=== PATIENT | female | born 1970 | race Caucasian/White ===

== ENCOUNTER 2018-09-27 22:45 | Inpatient (IN) | payer OTHER ==
[2018-09-27] MEDS ORDERED: KETOROLAC TROMETHAMINE 30 MG/1 ML VIAL IVPUSH ONE (23:01)
--- NOTE | 2018-09-27 23:03 | PDOC ---
History of Present Illness - General Chief Complaint: Pain, Acute Stated Complaint: PAIN IN LEFT RIB CAGE/NECK AND SHOULDER X 4 DAYS Time Seen by Provider: 09/27/18 22:46 History Source: Patient Exam Limitations: No Limitations - History of Present Illness Initial Comments: 09/28/18 00:18 This is a 47-year-old female who comes in complaining of left sided rib/ pleuritic type pain. Patient has not been taking anything for the pain and comes in tearful and upset complaining that it's difficult to breathe secondary to the pain. Patient denies any trauma to the area. Patient denies any history of DVT or PE in the past. Patient denies any family history of blood clots in the past. Patient is otherwise healthy and takes no medication. Patient said symptoms been going on for approximately 4-5 days. Allergies: as per nursing notes Past Medical History: none Social history: Lives with family. No smoking. No alcohol. No illicit drugs. Surgical history: None General: No fevers or chills, no weakness, no weight loss HEENT: No change in vision. No sore throat,. No ear pain CardioVascular: no chest discomfort. No shortness of breath Respiratory:No cough, or wheezing. Pleuritic chest pain with dyspnea Gastrointestinal: no nausea, vomiting, diarrhea or constipation, No rectal bleeding Genitourinary: No dysuria, hematuria, or frequency Musculoskeletal: No joint or muscle pain or swelling Neurologic: No headache, vertigo, dizziness or loss of consciousness Psychiatric: nor depression Skin: No rashes or easy bruising Endocrine: no increased thirst or abnormal weight change Allergic: no skin or latex allergy All other systems reviewed and normal Exam: General: Well-nourished well-developed individual, no acute distress HEENT: Throat: Normal, tonsils normal, no erythema or exudate Neck: Supple, no meningeal signs, no lymphadenopathy Eyes::Pupils equal reactive and round, extraocular motion intact Chest: Nontender to palpation Cardiac: S1-S2 normal, regular rate and rhythm, no murmurs rubs or gallops Respiratory: Lungs clear to auscultation bilateral Abdomen: Soft, nondistended, normal bowel sounds, there is no tenderness on palpation diffusely Extremities: Warm, dry, no cyanosis, clubbing, or edema Skin: No rashes Neuro: Alert and oriented x3, CN II - XII intact, nonfocal exam with normal strength, normal sensation, normal reflexes, normal gait, Psych: Normal mood and affect EKG shows normal sinus rhythm at a rate of [address]-T wave changes normal EKG Chest x-ray shows no acute pathology CT angiogram of the chest was positive for multiple pulmonary embolisms. Patient will be admitted to a inpatient bed and started on heparin 09/28/18 01:08 06:50am Patient complains of severe pain so was given 4 mg of morphine. Post the morphine patient suddenly became bradycardic and the diaphoretic. Patient's heart rate bradycardia down to approximately 23. Patient became unresponsive and her respiratory rate dropped to 8. Patient was put on high flow oxygen and given 1 dose of atropine with rapid return to a normal heart rate and normal level of consciousness. It is uncertain as to the etiology however I think this most likely is secondary to a vasovagal reaction to her pain. Care of this patient was transferred to Dr. sprague at 7 AM. Case discussed in detail with oncoming Emergency Physician including history, physical exam and ancillary studies. Oncoming Emergency Physician has assumed care for the patient and will complete the evaluation and treatment. Patient is aware of the plan. Pt is clinically unchanged and stable. 09/28/18 21:06 Past History - Past Medical History Allergies/Adverse Reactions: Allergies Allergy/AdvReac Type Severity Reaction Status Date / Time No Known Allergies Allergy Verified 09/27/18 22:47 Home Medications: Ambulatory Orders Control 1 tab PO DAILY 09/28/18 ED Treatment Course - LABORATORY CBC & Chemistry Diagram: 09/27/18 23:10 09/28/18 06:15 *DC/Admit/Observation/Transfer Diagnosis at time of Disposition: Pulmonary embolism Qualifiers: Pulmonary embolism type: unspecified Chronicity: acute Acute cor pulmonale presence: without acute cor pulmonale Qualified Code(s): I26.99 - Other pulmonary embolism without acute cor pulmonale - Discharge Dispostion Condition at time of disposition: Guarded Decision to Admit order: Yes - Referrals - Patient Instructions - Post Discharge Activity
[2018-09-27] MEDS ORDERED: KETOROLAC TROMETHAMINE 30 MG/1 ML VIAL ONE (23:06)
[2018-09-27 23:23] LABS: BASO % 0.9 % (0-2.0); EOS % 0.9 % (0-4.5); HEMATOCRIT 41.2 % (32.4-45.2); HEMOGLOBIN 13.7 GM/dl (10.7-15.3); LYMPH % 31.5 % (8-40); MCHC 33.1 g/dl (32.0-36.0); MEAN CELL VOLUME 90.4 fl (80-96); MEAN PLT VOLUME 8.2 fl (7.5-11.1); MONO % 7.2 % (3.8-10.2); NEUT % 59.5 % (42.8-82.8); PLATELET COUNT 298 K/MM3 (134-434); RBC 4.56 M/mm3 (3.60-5.2); RDW 12.8 % (11.6-15.6); WHITE BLOOD COUNT 6.9 K/mm3 (4.0-10.8)
[2018-09-27 23:35] LABS: ALBUMIN 3.2 g/dl (3.4-5.0); BILIRUBIN,TOTAL 0.7 mg/dl (0.2-1); CALCIUM 8.8 mg/dl (8.5-10); CREATININE 0.6 mg/dl (0.55-1.3); POTASSIUM 4.2 mmol/L (3.5-5.1); TOT PROT 6.7 g/dl (6.4-8.2)
[2018-09-28] MEDS ORDERED: HEPARIN NA (PORCINE) 5,000 UNITS/ML 1ML VIAL IVPUSH PRN ×2 (01:03)
[2018-09-28] MEDS ORDERED: HEPARIN INFUSION - 25,000 UNITS/500 ML INFUS.BAG IVPB ONE (01:04)
[2018-09-28] MEDS ORDERED: HEPARIN NA (PORCINE) 5,000 UNITS/ML 1ML VIAL IVPUSH ONE (01:04)
[2018-09-28] MEDS ORDERED: HEPARIN NA (PORCINE) 5,000 UNITS/ML 1ML VIAL ONE (01:04)
[2018-09-28] MEDS ORDERED: HEPARIN SOD,PORK IN 0.45% NACL 25,000 UNIT/500 ML INFUS.BAG IVPB SCH (01:15)
[2018-09-28 02:06] LABS: INR 1.03 (0.83-1.09); PROTHROMBIN TIME (PATIENT) 12.1 SEC (9.7-13.0)
[2018-09-28 02:08] LABS: ACTIVATED PTT 29.8 SECONDS (25.2-36.5)
[2018-09-28] MEDS ORDERED: morphine CARPU-JECT 4 MG/1 ML DISP.SYRIN IVPUSH ONE (06:45)
[2018-09-28] MEDS ORDERED: morphine SULFATE 4 MG/ML VIAL ONE (06:46)
[2018-09-28] MEDS ORDERED: ATROPINE SULFATE 1 MG/10 ML DISP.SYRIN ONE (06:57)
--- NOTE | 2018-09-28 07:30 | PDOC ---
*Physical Exam - Vital Signs Last Vital Signs Temp Pulse Resp BP Pulse Ox 98.5 F 82 20 116/78 100 09/27/18 22:51 09/28/18 07:07 09/28/18 07:07 09/28/18 07:07 09/28/18 07:07 ED Treatment Course - LABORATORY CBC & Chemistry Diagram: 09/27/18 23:10 09/27/18 23:10 - ADDITIONAL ORDERS Additional order review: Laboratory Results 09/28/18 09/28/18 09/27/18 01:40 01:40 23:10 PT with INR 12.10 INR 1.03 PTT (Actin FS) 29.8 Sodium Potassium Chloride Carbon Dioxide Anion Gap BUN Creatinine Est GFR (CKD-EPI)AfAm Est GFR (CKD-EPI)NonAf Random Glucose Lactic Acid 0.9 Calcium Total Bilirubin AST ALT Alkaline Phosphatase Creatine Kinase Troponin I Total Protein Albumin Beta HCG, Quant Stool Occult Blood Negative 09/27/18 09/27/18 09/27/18 23:10 23:10 23:10 PT with INR INR PTT (Actin FS) Sodium 136 Potassium 4.2 Chloride 101 Carbon Dioxide 28 Anion Gap 7 L BUN 12.0 Creatinine 0.6 Est GFR (CKD-EPI)AfAm 127.58 Est GFR (CKD-EPI)NonAf 110.08 Random Glucose 80 Lactic Acid Calcium 8.8 Total Bilirubin 0.7 AST 23 ALT 12 L Alkaline Phosphatase 76 Creatine Kinase 52 Troponin I < 0.03 Total Protein 6.7 Albumin 3.2 L Beta HCG, Quant Cancelled Stool Occult Blood 09/27/18 23:10 RBC 4.56 MCV 90.4 MCHC 33.1 RDW 12.8 MPV 8.2 Neutrophils % 59.5 Lymphocytes % 31.5 Monocytes % 7.2 Eosinophils % 0.9 Basophils % 0.9 - Medications Given in the ED: ED Medications Discontinued Medications Generic Name Dose Route Start Last Admin Trade Name Freq PRN Reason Stop Dose Admin Heparin Sodium (Porcine) 4,400 unit 09/28/18 01:04 09/28/18 02:16 Heparin - 80 unit/kg (4400 unit) 09/28/18 01:05 4,400 unit IVPUSH Administration ONCE ONE Ketorolac Tromethamine 30 mg 09/27/18 23:01 09/27/18 23:15 Toradol Injection - IVPUSH 09/27/18 23:02 30 mg ONCE ONE Administration Morphine Sulfate 4 mg 09/28/18 06:45 09/28/18 07:00 Morphine Injection - IVPUSH 09/28/18 06:46 4 mg ONCE ONE Administration Medical Decision Making - Medical Decision Making 09/28/18 07:[address] pt signed out from Dr Lee at 7pm, pending admit pt already admitted to hospitalist service overnight. in summary 47 YOF with no known medical history, +OCP use, presenting with pleuritic chest pain x 4 days. had received toradol initially for pain control CTA revealed multiple PEs. on heparin gtt. biomarkers wnl, no e/o strain pt given morphine 2mg IV for pain control, at 655AM - pt had episode of near syncope, where she became severely bradycardic 20s, bradypneic. s/p atropine 1mg x1 O2 supplementation, titrated to nasal cannula improved with therapy. VS normalized, HD appropriate, on tele monitor previously overnight also had attempts to get bed at [facility], where her father is a physician, and due to preference made attempt to transfer and get bed at [facility] called again at 715AM - no acceptance yet, pending bed, but no call back. information/facesheet was sent over in the meantime from overnight 725AM - called to ICU at [facility], spoke with resident Dr Dumont, attg on Dr Weiner, discussed case for acceptance, will arrange for bed in the meantime , as pt unable to stay at [facility]. also d/w hospitalist team, AKILA Gamble. 09/28/18 07:29 *DC/Admit/Observation/Transfer Diagnosis at time of Disposition: Pulmonary embolism Qualifiers: Pulmonary embolism type: unspecified Chronicity: acute Acute cor pulmonale presence: without acute cor pulmonale Qualified Code(s): I26.99 - Other pulmonary embolism without acute cor pulmonale - Discharge Dispostion Condition at time of disposition: Guarded Decision to Admit order: Yes Decision to Admit order Date/Time: 09/28/18 07:29 - Referrals - Patient Instructions - Post Discharge Activity
[2018-09-28 07:38] LABS: BLOOD UREA NITROGEN 15.9 mg/dL (7-18); CALCIUM 8.8 mg/dL (8.5-10.1); CREATININE 0.6 mg/dL (0.55-1.3); POTASSIUM 4.3 mmol/L (3.5-5.1)
[2018-09-28] MEDS ORDERED: ATROPINE SULFATE 1 MG/10 ML DISP.SYRIN IVPUSH ONE (07:44)
[2018-09-28] MEDS ORDERED: SODIUM CHLORIDE 0.9% 500 ML INFUS.BAG IV ONE (08:12)
--- NOTE | 2018-09-28 08:31 | HP ---
Admitting History and Physical - Admission Chief Complaint: received signout on this patient 09/28/08 @ 830am[facility]08 to syncopal episodes in the ED at [facility]. She was found to have segmental PEs on imaging done at [facility] and is on heparin drip. full h&p to follow once patient is seen by me. History of Present Illness: Patient is a 47-year-old female who comes in complaining of left sided rib/ pleuritic type pain that began one week before her vacation to [place]. She went to [place] last week and returned on Tuesday. Before her trip she had some coughing and mild chest discomfort, but mild and tolerable. Her chest pain discomfort was mostly on her left side of her chest which worsened when she was in [place]. She reports that she is on a control pill called Kariva and has been taking in for a few months. She reports that she does not smoke. Patient denies any history of DVT or PE in the past. Patient denies any family history of blood clots in the past. Patient is otherwise healthy. Per ED signout , patient had an episode of near syncope in the ED at 0655, where she became severely bradycardic 20s, bradypneic and was given atropine 1mg once. She was placed on nasal cannula and she improved. CTA done in the ED shows bilateral PEs and a heparin drip was initiated. She was initially at [place] ED and was transferred to [facility] for ICU monitoring. Patient has a family member at [place] and she will be transferred to MICU today. History Source: Patient, Medical Record Limitations to Obtaining History: No Limitations - Past Medical History ...: No (on control) - Past Surgical History Past Surgical History: Yes: None - Smoking History Smoking history: Never smoked Have you smoked in the past 12 months: No - Alcohol/Substance Use Hx Alcohol Use: No History of Substance Use: reports: None - Social History Usual Living Arrangement: Yes: With Spouse ADL: Independent History of Recent Travel: Yes (Traveled to [place]) Home Medications - Allergies Allergies/Adverse Reactions: Allergies Allergy/AdvReac Type Severity Reaction Status Date / Time No Known Allergies Allergy Verified 09/27/18 22:47 - Home Medications Home Medications: Ambulatory Orders Control 1 tab PO DAILY 09/28/18 Review of Systems - Review of Systems Constitutional: reports: Lethargy Eyes: reports: No Symptoms HENT: reports: No Symptoms Neck: reports: No Symptoms Cardiovascular: reports: Chest Pain Respiratory: reports: Cough, Exercise Intolerance, SOB, SOB on Exertion Gastrointestinal: reports: No Symptoms Physical Examination Vital Signs: Vital Signs Temperature 98.5 F 09/27/18 22:51 Pulse Rate 52 L 09/28/18 08:15 Respiratory Rate 18 09/28/18 08:15 Blood Pressure 46/30 L 09/28/18 08:15 O2 Sat by Pulse Oximetry (%) 2 L 09/28/18 08:15 Constitutional: Yes: Well Nourished, Anxious Eyes: Yes: WNL HENT: Yes: WNL Neck: Yes: WNL Cardiovascular: Yes: Regular Rate and Rhythm Respiratory: Yes: CTA Bilaterally Gastrointestinal: Yes: WNL ...Rectal Exam: Yes: Deferred Edema: Yes Edema: LLE: 1+ (shiny edematous bilateral lower ext), RLE: 1+ (shiny edematous bilateral lower ext) Peripheral Pulses: Left Doralis Pedis: 4+, Right Dorsalis Pedis: 4+ Integumentary: Yes: WNL Neurological: Yes: WNL, Alert, Oriented ...Motor Strength: WNL Psychiatric: Yes: Alert, Oriented Labs: CBC, BMP 09/27/18 23:10 09/28/18 06:15 Imaging - Results Cat Scan: Image Reviewed Problem List - Problems (1) Pulmonary embolism Assessment/Plan: Bilateral PEs on CTA. for transfer to MICU for further workup. On heparin drip. Code(s): I26.99 - OTHER PULMONARY EMBOLISM WITHOUT ACUTE COR PULMONALE Qualifiers: Pulmonary embolism type: unspecified Chronicity: acute Acute cor pulmonale presence: without acute cor pulmonale Qualified Code(s): I26.99 - Other pulmonary embolism without acute cor pulmonale (2) Syncope and collapse Assessment/Plan: Per ED signout, patient had an episode of near syncope, where she became severely bradycardic 20s, bradypneic and was given atropine 1mg once. She was placed on nasal cannula and she improved. continue adequate fluid resuscitation Code(s): R55 - SYNCOPE AND COLLAPSE Visit type - Emergency Visit Emergency Visit: Yes ED Registration Date: 09/28/18 Care time: The patient presented to the Emergency Department on the above date and was hospitalized for further evaluation of their emergent condition. - New Patient This patient is new to me today: Yes Date on this admission: 09/28/18 - Critical Care Critical Care patient: Yes Total Critical Care Time (in minutes): 60 Critical Care Statement: The care of this patient involved high complexity decision making to prevent further life threatening deterioration of the patient 's condition and/or to evaluate & treat vital organ system(s) failure or risk of failure.
[2018-09-28] MEDS ORDERED: ACETAMINOPHEN 1000 MG/100 ML VIAL (NON FORMULARY) IVPB ONE (08:59)
[2018-09-28 09:51] VITALS: TEMP 98.1; BMI 17.1
[2018-09-28 10:43] VITALS: BP 87/56; PULSE 56
[2018-09-28 11:05] LABS: INR 1.13 (0.83-1.09); PROTHROMBIN TIME (PATIENT) 13.3 SEC (9.7-13.0)
[2018-09-28 11:08] LABS: ACTIVATED PTT 56.4 SECONDS (25.2-36.5)
--- NOTE | 2018-09-28 11:46 | PN ---
Progress Note (short form) - Note Progress Note: Patient seen and examined in the ICU. Awake and alert. Previous CP and SOB much improved. IV Heparin infusing. Hemodynamics stable. Per patient and family request she will be transferred to [facility] [place]. Intake & Output 09/25/18 09/26/18 09/27/18 09/28/18 23:59 23:59 23:59 23:59 Intake Total 1100 Balance 1100 Weight 120 lb 115 lb 11.2 oz Last Vital Signs Temp Pulse Resp BP Pulse Ox 98.1 F 56 L 18 87/56 L 100 09/28/18 09:48 09/28/18 10:42 09/28/18 10:42 09/28/18 10:42 09/28/18 09:58 General: Well-nourished well-developed individual, no acute distress HEENT: Supple, no lymphadenopathy Eyes::(-) Pallor (-) Icterus Cardiac: S1-S2 normal, regular rate and rhythm, no murmurs rubs or gallops Respiratory: Lungs clear to auscultation bilateral Abdomen: Soft, nondistended, normal bowel sounds, there is no tenderness on palpation diffusely Extremities: Warm, dry, no cyanosis, clubbing, or edema Skin: No rashes Neuro: Alert and oriented x3, Non-focal Psych: Normal mood and affect Chest x-ray: no acute pathology CTA: multiple segmental pulmonary embolisms / LLL atelectasis IMP: Bilateral PE R/O DVT History of OCP use PLAN: IV Heparin per PE Protocol O2 as needed IVF Will need hypercoaguable work up Per patient and family request she will be transferred to [facility] [place]. She is currently clinically and hemodynamically stable. Dr Weiner
--- NOTE | 2018-09-28 12:10 | CONSULT ---
Consultation: REQUESTING PROVIDER: Dr. Graham CONSULT REQUEST: We have been asked to medically evaluate this patient for Pulmonary embolism, hypotension/bradycardia HISTORY OF PRESENT ILLNESS: 47 year old female with no significant pmh presented to [facility] ED for pleuritic chest pain for 4 days. Recently on a 2 hour flight from [place] few days prior. On oral contraceptives. In ED, patient had CTA positive for multiple pulmonary emboli in subsegmental vessels. In the ED at [facility], patient was given 4mg morphine and her heart rate dropped to the 40s as well as dropped BP to 60s/40s. Patient was transferred to our ICU for monitoring. Currently patient's BP is stable and HR in the 60s. Severe pain in L side of chest worse with inhalation. No family hx of bleeding or clotting disorders. Denies fevers, chills, nausea, vomiting, diarrhea, sick contacts. REVIEW OF SYSTEMS: CONSTITUTIONAL: Absent: fever, chills, diaphoresis, generalized weakness, malaise, loss of appetite, weight change HEENT: Absent: rhinorrhea, nasal congestion, throat pain, throat swelling, difficulty swallowing, mouth swelling, ear pain, eye pain, visual changes CARDIOVASCULAR: chest pain Absent:syncope, palpitations, irregular heart rate, lightheadedness, peripheral edema RESPIRATORY: shortness of breath Absent: cough, dyspnea with exertion, orthopnea, wheezing, stridor, hemoptysis GASTROINTESTINAL: Absent: abdominal pain, abdominal distension, nausea, vomiting, diarrhea, constipation, melena, hematochezia GENITOURINARY: Absent: dysuria, frequency, urgency, hesitancy, hematuria, flank pain, genital pain MUSCULOSKELETAL: Absent: myalgia, arthralgia, joint swelling, back pain, neck pain SKIN: Absent: rash, itching, pallor HEMATOLOGIC/IMMUNOLOGIC: Absent: easy bleeding, easy bruising, lymphadenopathy, frequent infections ENDOCRINE: Absent: unexplained weight gain, unexplained weight loss, heat intolerance, cold intolerance NEUROLOGIC: Absent: headache, focal weakness or paresthesias, dizziness, unsteady gait, seizure, mental status changes, bladder or bowel incontinence PSYCHIATRIC: Absent: anxiety, depression, suicidal or homicidal ideation, hallucinations. PHYSICAL EXAMINATION Vital Signs - 24 hr 09/27/18 09/28/18 09/28/18 22:51 02:39 06:22 Temperature 98.5 F Pulse Rate 79 Pulse Rate [ 65 65 Left] Respiratory 18 15 15 Rate Blood Pressure 100/69 Blood Pressure 108/80 96/55 L [Left] O2 Sat by Pulse 100 97 97 Oximetry (%) 09/28/18 09/28/18 09/28/18 06:41 07:07 07:20 Temperature Pulse Rate 78 Pulse Rate [ 60 82 78 Left] Respiratory 15 20 14 Rate Blood Pressure Blood Pressure 104/67 116/78 109/73 [Left] O2 Sat by Pulse 98 100 100 Oximetry (%) 09/28/18 09/28/18 09/28/18 07:39 07:55 08:15 Temperature Pulse Rate Pulse Rate [ 71 69 52 L Left] Respiratory 14 16 18 Rate Blood Pressure Blood Pressure 95/64 89/54 L 46/30 L [Left] O2 Sat by Pulse 100 100 2 L Oximetry (%) 09/28/18 09/28/18 09/28/18 08:16 08:18 09:19 Temperature Pulse Rate 56 L Pulse Rate [ 55 L 58 L Left] Respiratory 16 16 16 Rate Blood Pressure 89/60 L Blood Pressure 67/37 L 84/54 L [Left] O2 Sat by Pulse 100 Oximetry (%) 09/28/18 09/28/18 09/28/18 09:42 09:48 09:58 Temperature 98.1 F Pulse Rate 56 L Pulse Rate [ Left] Respiratory 16 Rate Blood Pressure 89/60 L Blood Pressure [Left] O2 Sat by Pulse 100 100 Oximetry (%) 09/28/18 09/28/18 09/28/18 10:16 10:27 10:42 Temperature Pulse Rate 52 L 49 L 56 L Pulse Rate [ Left] Respiratory 21 H 16 18 Rate Blood Pressure 79/55 L 88/48 L 87/56 L Blood Pressure [Left] O2 Sat by Pulse Oximetry (%) GENERAL: A&Ox3, mild distress EYES: PERRLA, EOMI ENT: Moist mucus membranes NECK: No JVD LUNGS: CTA, no wheezes HEART: RRR, no murmurs ABDOMEN: Soft, nontender, BS present MUSCULOSKELETAL: No CVA Tenderness EXTREMITIES: 2+ pulses, no edema. NEUROLOGICAL: Cranial nerves II-XII intact. Laboratory Results - last 24 hr 09/27/18 09/27/18 09/27/18 23:10 23:10 23:10 WBC RBC Hgb Hct MCV MCH MCHC RDW Plt Count MPV Absolute Neuts (auto) Neutrophils % Lymphocytes % Monocytes % Eosinophils % Basophils % PT with INR INR PTT (Actin FS) Sodium 136 Potassium 4.2 Chloride 101 Carbon Dioxide 28 Anion Gap 7 L BUN 12.0 Creatinine 0.6 Est GFR (CKD-EPI)AfAm 127.58 Est GFR (CKD-EPI)NonAf 110.08 Random Glucose 80 Lactic Acid Calcium 8.8 Total Bilirubin 0.7 AST 23 ALT 12 L Alkaline Phosphatase 76 Creatine Kinase 52 Troponin I < 0.03 Total Protein 6.7 Albumin 3.2 L Triglycerides Cholesterol Total LDL Cholesterol HDL Cholesterol Beta HCG, Quant Cancelled POC Urine HCG, Qual Stool Occult Blood 09/27/18 09/27/18 09/28/18 23:10 23:10 01:40 WBC 6.9 RBC 4.56 Hgb 13.7 Hct 41.2 MCV 90.4 MCH 30.0 MCHC 33.1 RDW 12.8 Plt Count 298 MPV 8.2 Absolute Neuts (auto) 4.0 Neutrophils % 59.5 Lymphocytes % 31.5 Monocytes % 7.2 Eosinophils % 0.9 Basophils % 0.9 PT with INR INR PTT (Actin FS) Sodium Potassium Chloride Carbon Dioxide Anion Gap BUN Creatinine Est GFR (CKD-EPI)AfAm Est GFR (CKD-EPI)NonAf Random Glucose Lactic Acid 0.9 Calcium Total Bilirubin AST ALT Alkaline Phosphatase Creatine Kinase Troponin I Total Protein Albumin Triglycerides Cholesterol Total LDL Cholesterol HDL Cholesterol Beta HCG, Quant POC Urine HCG, Qual Stool Occult Blood Negative 09/28/18 09/28/18 09/28/18 01:40 04:37 06:15 WBC RBC Hgb Hct MCV MCH MCHC RDW Plt Count MPV Absolute Neuts (auto) Neutrophils % Lymphocytes % Monocytes % Eosinophils % Basophils % PT with INR 12.10 INR 1.03 PTT (Actin FS) 29.8 Sodium 137 Potassium 4.3 Chloride 104 Carbon Dioxide 27 Anion Gap 6 L BUN 15.9 Creatinine 0.6 Est GFR (CKD-EPI)AfAm 127.58 Est GFR (CKD-EPI)NonAf 110.08 Random Glucose 93 Lactic Acid Calcium 8.8 Total Bilirubin AST ALT Alkaline Phosphatase Creatine Kinase Troponin I Total Protein Albumin Triglycerides 118 Cholesterol 150 Total LDL Cholesterol 65 HDL Cholesterol 65 H Beta HCG, Quant POC Urine HCG, Qual Negative Stool Occult Blood 09/28/18 09:53 WBC RBC Hgb Hct MCV MCH MCHC RDW Plt Count MPV Absolute Neuts (auto) Neutrophils % Lymphocytes % Monocytes % Eosinophils % Basophils % PT with INR 13.30 H INR 1.13 H PTT (Actin FS) 56.4 H Sodium Potassium Chloride Carbon Dioxide Anion Gap BUN Creatinine Est GFR (CKD-EPI)AfAm Est GFR (CKD-EPI)NonAf Random Glucose Lactic Acid Calcium Total Bilirubin AST ALT Alkaline Phosphatase Creatine Kinase Troponin I Total Protein Albumin Triglycerides Cholesterol Total LDL Cholesterol HDL Cholesterol Beta HCG, Quant POC Urine HCG, Qual Stool Occult Blood ASSESSMENT/PLAN: 47 year old female with no significant pmh presented to [facility] ED for pleuritic chest pain for 4 days and admitted for tx of multiple bilateral pulmonary emboli #Pulmonary embolism -bilateral and subsegmental on CTA, no bowing of interventricular septum -started on heparin ggt -IV tylenol 1 gram improved her pain -fluid resuscitation -immediately upon arriving to our facility, within 30 minutes patient was transferred to [facility] MICU. Spoke to Dr. Selene Khalil, ICU fellow. -will get supplementary evaluation at [facility] Dispo: We will continue to follow the patient. Thank you for this consultative opportunity. Visit type - Emergency Visit Emergency Visit: No - New Patient This patient is new to me today: Yes Date on this admission: 09/28/18 - Critical Care Critical Care patient: Yes Total Critical Care Time (in minutes): 35 Critical Care Statement: The care of this patient involved high complexity decision making to prevent further life threatening deterioration of the patient 's condition and/or to evaluate & treat vital organ system(s) failure or risk of failure. ATTENDING PHYSICIAN STATEMENT I saw and evaluated the patient. I reviewed the resident's note and discussed the case with the resident. I agree with the resident's findings and plan as documented. SUBJECTIVE: OBJECTIVE: ASSESSMENT AND PLAN:
--- NOTE | 2018-09-28 14:40 | EKG ---
Test Reason : Blood Pressure : / mmHG Vent. Rate : 067 BPM Atrial Rate : 067 BPM P-R Int : 122 ms QRS Dur : 084 ms QT Int : 384 ms P-R-T Axes : 094 064 087 degrees QTc Int : 405 ms NORMAL SINUS RHYTHM NORMAL ECG NO PREVIOUS ECGS AVAILABLE Confirmed by ROLDAN THIBODEAUX, YOLIE ([id number]) on 09/28/2018 2:39:40 PM Referred By: MD MANDUJANO Confirmed By:YOLIE MONTILLA MD
== END 2018-09-28 11:28 | disposition short-term general hospital (02) | DRG 176 ==
LOC: FER 22:45 → JICU 09-28 08:51
PROVIDERS: ADMIT Internal Medicine; ATTEND Nurse Practitioner Family
DX: I26.99 Other pulmonary embolism without acute cor pulmonale (principal)
CPT/HCPCS: 36415; 71045-TC-FY; 71275-TC; 80048; 80053; 80061; 81025; 82272; 82550; 83605; 83721; 84484; 85025; 85610; 85730; 93005; 99284-25; J0131; J1644